=== PATIENT | female | born 1950 | race Caucasian/White ===

== ENCOUNTER 2018-06-16 00:47 | Inpatient (IN) | payer MEDICARE ==
[2018-06-16] MEDS ORDERED: Aspirin Chewable 81 MG TAB ONE (07:49)
[2018-06-16] MEDS ORDERED: Insulin Regular 300 UNITS/3 ML VIAL SC PRN (09:08)
[2018-06-16] MEDS ORDERED: Bisacodyl 5 MG TAB PO PRN (09:08)
[2018-06-16] MEDS ORDERED: Acetaminophen 650 MG Suppository PR PRN (09:08)
--- NOTE | 2018-06-16 12:05 | ULT ---
BILATERAL CAROTID DUPLEX ULTRASOUND: DATE: 06/16/18 HISTORY: TIA. TECHNIQUE: Goodman scale ultrasound with color flow and spectral Doppler imaging of the extracranial carotid artery systems performed bilaterally. FINDINGS: Minimal plaque formation is seen on either side. The peak systolic velocity in the right ICA measures 89 cm/second with an end-diastolic velocity of 3 0 cm/second and a systolic ratio of 0.8. The peak systolic velocity in the left ICA measures 96 cm/second with an end-diastolic velocity of 34 cm/second and a systolic ratio of 1.04. Flow in both vertebral arteries remains antegrade. IMPRESSION: No evidence of hemodynamically significant stenosis. POS: C
--- NOTE | 2018-06-16 12:05 | HP ---
PRIMARY CARE PROVIDER: Dr. Ashish Cook in [place]. CHIEF COMPLAINT: Difficulty speaking. HISTORY OF PRESENT ILLNESS: Ms. Noble is a pleasant 67-year-old lady, who was seen at [facility] on June 16, 2018, following transfer from the emergency room at [place]. She reports that 5 days ago, she was talking to a friend whose daughter recently. After talking for a prolonged period of time, she felt that she had difficulty articulating her speech. She knew what she was going to say, but felt that her tongue was swollen, and she was unable to get the words out. The same thing happened the following day. It happened yesterday as well. She therefore presented to the emergency room at [place]. She spoke to the two friends who were with her when these symptoms were present. Her friend did not recall any change in her speech. She reports that she has trouble saying S, C, and J. She reports that sometimes when she lies down, she feels that her breathing is getting blocked. REVIEW OF SYSTEMS: All other systems reviewed and found to be negative. PAST MEDICAL HISTORY: Diabetes mellitus type 2 and hypertension. SURGICAL HISTORY: Sacral implant, cholecystectomy, section, bilateral foot surgery, LASIK surgery, and bilateral cataract surgery. SOCIAL HISTORY: The patient denies tobacco use, alcohol use, or recreational drug use. FAMILY HISTORY: Significant for stroke in her maternal grandmother. ALLERGIES: SULFA. CURRENT MEDICATIONS: 1. Metformin 500 mg daily. 2. Montelukast 10 mg daily. 3. Losartan/hydrochlorothiazide 50/12.5 mg daily. 4. Valacyclovir 500 mg daily. 5. Sertraline 50 mg daily. PHYSICAL EXAMINATION: GENERAL: On examination, Ms. Noble is awake and alert, not in acute distress. VITAL SIGNS: Blood pressure is 135/76, pulse 62, respiratory rate 18, and oxygen saturation 96% on room air. She is afebrile. EYES: No scleral icterus, no conjunctival pallor. ENT: Moist mucosal membranes. No oropharyngeal erythema or exudates, no tongue swelling. Mild bilateral maxillary sinus tenderness. NECK: Supple, nontender. Trachea is midline. RESPIRATORY: Accessory muscles of breathing are not active. Chest wall movements are symmetric bilaterally. LUNGS: Clear to auscultation without wheeze, rhonchi, or crepitations. CARDIOVASCULAR: S1 and S2 are heard, regular. Peripheral pulses palpable. No carotid bruit. No pericardial rub. ABDOMEN: Soft, nontender, bowel sounds heard, no hepatomegaly, no splenomegaly. NEUROLOGIC: Cranial nerves 2 through 12 are intact. No focal motor or sensory deficits. Power is 5/5 in all four extremities. Deep tendon reflexes 2+, plantars downgoing bilaterally. Cerebellar exam unremarkable. MUSCULOSKELETAL: Power is 5/5 in all four extremities. SKIN: No rashes or subcutaneous nodules. LYMPHATIC: No cervical lymphadenopathy. PSYCHIATRIC: Normal mood, normal affect. The patient is oriented to person, place, and time. DIAGNOSTIC AND LABORATORY DATA: Ms. Noble labs and investigations were reviewed. Reviewed her electrocardiogram, which shows normal sinus rhythm, no ST changes to suggest an acute coronary syndrome. I also reviewed her noncontrast CT scan of the brain, which does not show any acute intracranial abnormality. She has an unremarkable CBC. INR 1.1. Normal sodium, decreased potassium of 3.1, normal creatinine, normal LFTs, and normal blood urea nitrogen. ASSESSMENT AND PLAN: Ms. Noble is a pleasant 67-year-old lady, who was seen at [facility] on June 16, 2018. Her problem list includes: 1. Difficulty speaking: I did not notice any abnormality with Ms. Noble' speech. Differential diagnosis is wide and includes entities such as cerebrovascular accident and myasthenia gravis, since her episodes appear to have occurred toward the end of talking for a while. She will have a stroke workup including MRI of the brain, 2D echocardiogram, and carotid Dopplers. Neurology Service will also be consulted for opinion and help with management. She has received aspirin, which I will continue. 2. Diabetes mellitus, type 2: We will continue her home medications and start her on Accu-Cheks and insulin sliding scale. 3. Hypokalemia: We will replace potassium and recheck. 4. Hypertension: We will resume home medications, monitor vital signs, and titrate antihypertensives as needed. 5. Many thanks for allowing me to participate in Ms. Noble' care. Please feel free to contact me with any questions or concerns. LEVEL OF RISK: High. LEVEL OF COMPLEXITY: High. Job ID: [id number]
[2018-06-16] MEDS ORDERED: Lorazepam 2 MG/ML VIAL SLOW IVP SCH (12:15)
[2018-06-16 13:34] VITALS: BMI 28.5
[2018-06-16] MEDS ORDERED: Prevnar 13-Val Conj/PF 0.5 ML SYRINGE IM ONE (14:00)
[2018-06-16] MEDS: Acetaminophen 325 MG TAB PO PRN (20:37)
--- NOTE | 2018-06-16 22:53 | CON ---
DATE OF CONSULTATION: 06/16/2018 CONSULTING PHYSICIAN: Hospitalist Services consultation. IMPRESSION: Possible bulbar myasthenia. PLAN: 1. Acetylcholine receptor antibody. 2. Office followup. HISTORY OF PRESENT ILLNESS: Ms. Noble is a 67-year-old white female with no significant past history other than borderline diabetes. She presented with complaints that she felt like her tongue was getting thick intermittently. This has been going on for the last several days. It never persists for any significant duration of time. There is no facial droop associated with it. She has not had any double vision or ptosis. She denies any lateralized weakness or numbness. She has an implantable stimulator, therefore MRI could not be done. Her CT scan of the brain was unremarkable. Her carotid Doppler was also clear for any stenosis. Her vital signs been stable since admission. She has been afebrile. She has no complaint of headache, nausea, vomiting, vertigo, blurred vision, or other focal symptoms. PAST HISTORY: Borderline diabetes. ALLERGIES: SULFA. SOCIAL HISTORY: No tobacco or alcohol use. FAMILY HISTORY: Noncontributory. MEDICATIONS: Medication list was reviewed. REVIEW OF SYSTEMS: Ten-system review of systems otherwise, negative. PHYSICAL EXAMINATION: VITAL SIGNS: Stable. She is afebrile. GENERAL: She is a well-nourished elderly lady, in no distress. HEENT: Pupils equal and reactive. Conjunctivae clear. Oropharynx clear. No ptosis is present. Eye closure strength was good. NECK: Supple. Flexion and extension strength were normal. EXTREMITIES: No cyanosis, clubbing, or edema. NEUROLOGIC: She is alert and appropriate. Her speech is fluent and clear. Cranial nerves 2 through 12 are intact. Motor exam showed good strength bilaterally. Sensation was intact to light touch. Cerebellar testing showed no tremor or dysmetria. She can walk independently. SUMMARY: Given the multiple brief intermittent subjective complaints of slurred speech without any residual effects, strongly suspect this is more neuromuscular in origin. Given the minor nature of her symptoms, I am not going to start her on any medication at this point. We will follow up with her after her antibody tests are completed. Job ID: [id number]
[2018-06-17] MEDS ORDERED: Melatonin 3 MG TAB PO PRN (00:01)
[2018-06-17 05:50] LABS: #Eosinphils 0.1 thou/uL (0.0-0.7); #Lymphocytes 1.5 thou/uL (1.20-3.40); #Monocytes 0.4 thou/uL (0.11-0.59); #Neutrophils 2.4 thou/uL (1.40-6.50); %Eosinophils 2.3 % (0.0-10.0); %Lymphocytes 34.6 % (21.0-51.0); %Monocytes 8.5 % (0.0-10.0); %Neutrophils 53.6 % (42.0-75.0); Hemoglobin 12.9 g/dL (12.0-16.0); Mean Corpuscular HGB CONC 31.8 g/dL (32.0-36.0); Mean Corpuscular Hemoglobin 29.3 pg (27.0-31.0); Mean Corpuscular Volume 92.1 fL (78.0-98.0); Mean Platelet Volume 8.7 fL (7.4-10.4); Platelet Count 185 thou/uL (130-400); RBC Distribution Width 11.5 % (11.5-14.5); Red Blood Cell (RBC) Count 4.42 mill/uL (4.20-5.40); White Blood Cell (WBC) Count 4.4 thou/uL (4.8-10.8)
[2018-06-17 06:06] LABS: Anion Gap 12 mmol/L (10-20); BUN (Urea Nitrogen) 14 mg/dL (9.8-20.1); Calc. Creatinine Clearance 91 mL/min (70-130); Calcium 9.5 mg/dL (7.8-10.44); Carbon Dioxide 25 mmol/L (23-31); Cardiac Risk 4.7 (Less than 4.5); Chloride 111 mmol/L (98-107); Cholesterol 165 mg/dl (< 200 Desired); Estimated GFR-MDRD 86; Glucose 115 mg/dL (80-115); HDL Cholesterol 35 mg/dL (>60 Neg Risk); LDL Cholesterol, Calculated 113 mg/dL; Sodium 144 mmol/L (136-145); Triglycerides 87 mg/dL (Less than 150)
[2018-06-17] MEDS: Acetaminophen 325 MG TAB PO PRN (08:37)
[2018-06-17] MEDS ORDERED: Enoxaparin Sodium 40 MG/0.4 ML SYRINGE SC SCH (09:00)
[2018-06-17] MEDS ORDERED: Aspirin 81 mg Enteric Coated Tablet PO SCH (09:00)
[2018-06-17] MEDS ORDERED: valACYclovir 500 MG TAB PO SCH (09:00)
[2018-06-17] MEDS ORDERED: Non-Formulary Item 1 EACH (Sertraline Hcl [Zoloft] 50 MG) PO SCH (09:00)
[2018-06-17] MEDS ORDERED: Montelukast Sodium 10 mg Tablet PO SCH (09:00)
[2018-06-17 11:35] VITALS: BP 113/67; TEMP 97.7
--- NOTE | 2018-06-17 19:02 | PDOC.PN ---
- Subjective Encounter Start Date: 06/17/18 Encounter Start Time: 19:00 Subjective: seen and examined -: still w on and off tiunge weakness -: no other neurological symptoms no difficulty w speech or swollow - Objective MAR Reviewed: Yes Vital Signs & Weight: Vital Signs (12 hours) Temp Pulse Resp BP Pulse Ox 06/17/18 11:34 97.7 F 67 16 113/67 96 06/17/18 07:49 97.8 F 66 16 131/75 97 06/17/18 07:30 96 Weight Weight 161 lb 3 oz I&O: 06/16/18 06/17/18 06/18/18 06:59 06:59 06:59 Intake Total 300 300 Balance 300 300 Result Diagrams: 06/17/18 05:07 06/17/18 05:07 Additional Labs: Accuchecks 06/17/18 06/17/18 06/16/18 10:46 05:43 19:48 POC Glucose 117 H 114 H 117 H Phys Exam - Physical Examination Constitutional: NAD HEENT: PERRLA, moist MMs, sclera anicteric, TM's clear (pharyngeal edema or erythema.no tounge swelling), oral pharynx no lesions, 2+ tonsils Neck: no nodes, no JVD, supple, full ROM Respiratory: no wheezing, no rales, no rhonchi, clear to auscultation bilateral Cardiovascular: RRR, no significant murmur Gastrointestinal: soft, non-tender, no distention, positive bowel sounds Musculoskeletal: no edema, pulses present Neurological: non-focal, normal sensation, moves all 4 limbs Psychiatric: normal affect, A&O x 3 Skin: no rash Dx/Plan (1) Bulbar myasthenia gravis Code(s): G70.00 - MYASTHENIA GRAVIS WITHOUT (ACUTE) EXACERBATION Status: Acute - Plan hd stable. OK to DC home per neurology recs -: OP f/u. -: pt educated extensively. -: no neuro deficits on exam -: see DC summary for details * . Review of Systems - Review of Systems Constitutional: negative: fever, chills, sweats, weakness, malaise, other Respiratory: negative: Cough, Dry, Shortness of Breath, Hemoptysis, SOB with Excertion, Pleuritic Pain, Sputum, Wheezing Cardiovascular: negative: chest pain, palpitations, orthopnea, paroxysmal nocturnal dyspnea, edema, light headedness, other Gastrointestinal: negative: Nausea, Vomiting, Abdominal Pain, Diarrhea, Constipation, Melena, Hematochezia, Other Genitourinary: negative: Dysuria, Frequency, Incontinence, Hematuria, Retention , Other Musculoskeletal: negative: Neck Pain, Shoulder Pain, Arm Pain, Back Pain, Hand Pain, Leg Pain, Foot Pain, Other Skin: negative: Rash, Lesions, Delfino, Bruising, Other Neurological: Other. negative: Weakness, Numbness, Incoordination, Change in Speech, Confusion, Seizures - Medications/Allergies Allergies/Adverse Reactions: Allergies Allergy/AdvReac Type Severity Reaction Status Date / Time Sulfa (Sulfonamide Allergy Verified 06/16/18 09:08 Antibiotics)
== END 2018-06-17 14:59 | disposition home or self-care (01) | DRG 57 ==
LOC: ERS 00:47 → ERHOLD 01:13 → 2SE 13:05
PROVIDERS: ADMIT Internal Medicine; ATTEND Internal Medicine
DX: G70.00 Myasthenia gravis without (acute) exacerbation (principal); E11.9 Type 2 diabetes mellitus without complications; E87.6 Hypokalemia; I10 Essential (primary) hypertension
CPT/HCPCS: 36415; 36416; 80048; 80061; 83519; 85025; 90471; 90662; 90670; 93880; 99285; G0008; G0009; J1650

== ENCOUNTER 2018-07-01 13:32 | Outpatient (CLI) | payer MEDICARE, OTHER ==
--- NOTE | 2018-07-01 16:10 | CT ---
HIGH RESOLUTION CHEST CT WITHOUT CONTRAST 07/01/18 HISTORY: Myasthenia gravis without acute exacerbation. TECHNIQUE: Multiple contiguous axial images were obtained in a high resolution chest CT without contrast. This i s performed with thin slices taken at thick intervals in the supine and prone positions. FINDINGS: No significant increased interstitial lung disease is seen. No bronchiectasis is present. No pneumoth orax or pleural effusion are seen. No pulmonary nodules are appreciated, but evaluation is limited gi nikolai the large intervals. No focal infiltrates are seen. The heart is normal in size. No hilar or medi astinal lymphadenopathy are seen, but evaluation is limited without IV contrast. The patient is status post cholecystectomy. There is a hypodense lesion in the spleen measuring 1.7 c m in size which cannot be fully characterized on this examination. There may also be a second hypoden se lesion in the spleen measuring 2.6 cm in size which also cannot be assessed fully on this noncontr ast examination. Degenerative changes are seen in the spine. The visualized thyroid is unremarkable. Just posterior to the right thyroid lobe is 1.2 cm area of nodularity which could represent a parathy roid gland. The chest wall soft tissues are unremarkable. IMPRESSION: 1. No significant intrathoracic abnormality. 2. Nonspecific hypodensities in the spleen. CT of the abdomen and pelvis with contrast is recomm ended for better characterization. POS: [facility]
== END 2018-07-01 13:33 | disposition home or self-care (01) ==
LOC: BICCT 13:32
PROVIDERS: ATTEND Psychiatry & Neurology Neurology
DX: G70.00 Myasthenia gravis without (acute) exacerbation (principal); R93.5 Abnormal findings on diagnostic imaging of other abdominal regions, including retroperitoneum
CPT/HCPCS: 71250